=== PATIENT | female | born 1960 | race Two or more races ===

== ENCOUNTER 2022-12-10 12:55 | Emergency (ER) | payer OTHER ==
[~2022-12-10] VITALS: Ht 160 cm; Wt 81.6 kg
[2022-12-10] MEDS ORDERED: PROTONIX40 MG PO (13:09)
[2022-12-10] MEDS ORDERED: SYNTHROID88 MCG PO (13:09)
[2022-12-10] MEDS ORDERED: SERTRALINE HCL50 MG PO (13:10)
[2022-12-10] MEDS ORDERED: XOPENEX HFA15 GM IH (13:11)
[2022-12-10] MEDS ORDERED: TESSALON (13:11)
[2022-12-10] MEDS ORDERED: TUSNEL LIQUID178 ML PO (20:01)
[2022-12-10] MEDS ORDERED: IPRAT-ALBUT 0.5-3 ML IH (20:01)
[2022-12-10] MEDS ORDERED: MEDROLPACK PO (20:01)
== END 2022-12-10 20:27 | disposition home or self-care (01) ==
LOC: ER 12:55
DX: J40 Bronchitis, not specified as acute or chronic (principal); Z91.013 Allergy to seafood; Z91.041 Radiographic dye allergy status